=== PATIENT | female | born 1950 | race Caucasian/White ===

== ENCOUNTER 2024-09-14 12:53 | Emergency (ER) | payer MEDICARE, SELFPAY ==
[2024-09-14] VITALS (7 sets, daily range): BP systolic 100–139; BP diastolic 61–74; BMI 17.0
[2024-09-14 13:13] LABS: % Basophils 0.5 % (0-2); % Eosinophils 0.9 % (0-6); % Immature Granulocytes 0.3 % (0-0.5); % Lymphocytes 27.3 % (20.5-51.1); % Monocytes 6.2 % (1.7-9.3); % Neutrophils 64.8 % (42.2-75.2); Absolute Eosinophils 0.1 10^3/uL (0-0.7); Absolute Lymphocytes 2.4 10^3/uL (1.2-3.4); Absolute Monocytes 0.6 10^3/uL (0.1-0.6); Absolute Neutrophils 5.7 10^3/uL (1.4-6.5); Hematocrit 38.1 % (37.0-47.0); Hemoglobin 12.7 g/dL (12.0-16.0); Mean Corp Hgb Conc. 33.3 g/dL (33.0-37.0); Mean Corpuscular Hgb 31.1 pg (27.0-31.0); Mean Corpuscular Volume 93.4 fL (81.0-99.0); Mean Platelet Volume 9.8 fL (7.4-10.4); Nucleated Red Blood Cells % 0 %; Platelet Count 208 10^3/uL (130-400); Red Blood Cell Count 4.08 10^6/uL (4.20-5.40); Red Cell Dist. Width 13.2 % (11.5-14.5); White Blood Cell Count 8.8 10^3/uL (4.8-10.8)
[2024-09-14 13:28] LABS: ALT (SGPT) < 10 U/L (0-35); AST (SGOT) 27 U/L (14-36); Albumin 4.4 g/dl (3.5-5.0); Alkaline Phosphatase 92 U/L (38-126); Blood Urea Nitrogen 22 mg/dl (7-17); Calcium 9.8 mg/dl (8.4-10.2); Carbon Dioxide 26 mmol/L (22-30); Chloride 106 mmol/L (98-107); Estimated Creatinine Clearance 50 ml/min; Glucose 126 mg/dl (70-99); Potassium 4.2 mmol/L (3.5-5.1); Sodium 141 mmol/L (135-145); Total Bilirubin 0.7 mg/dl (0.2-1.3); Total Protein 7.3 g/dl (6.3-8.2); eGFR > 60.00
--- NOTE | 2024-09-14 13:28 | ED.GENMED ---
History of Present Illness
General
Chief Complaint: Abdominal Symptoms
Source: patient
Exam Limitations: dementia
Time Seen by Provider: 09/14/24 13:14
Nursing documentation reviewed up to this point in time: agreed with
History of Present Illness
History of Present Illness:
74-year-old female with dementia was nauseous and diaphoretic at physical therapy here she is comfortable appearing, states she feels nauseous has not eaten lunch yet, no noted vomiting here, tells me she has not had surgery on her abdomen previously
Past History
Past History
ED Past Medical History: Other (Dementia)
Social History
Tobacco: Non-smoker
Alcohol: None
Drug: None
Living: long term
Employment: Not employed
Family History
Family History: Unable to obtain (Dementia)
Review of Systems
Review of Systems
Unable to obtain full review of systems at this time due to: dementia
Other source history: ambulance crew
All Other Systems: Not applicable
Cardiac: Reports diaphoresis; Denies chest pain
ABD/GI: Reports nausea
Phy Exam
Physical Exam
Physical Exam:
Physical Exam
General: 74-year-old female flat affect no acute distress
Neck: Lips are slightly dry
Heart: s1/s2 regular rate and rhythm, no murmur. equal radial pulses.
Lungs: no acute respiratory distress. clear bilaterally
Abdomen: Soft mild upper abdominal tenderness no guarding
Neuro: Demented moves all extremities
Skin: no rash
Psychiatric: Cooperative
Extremities: no edema.
Course
Orders/Labs/Results
Orders:
Orders
09/14/24 12:59
Electrocardiogram (*1) Urgent
Reason for Study: Chest Pain
EKG- Treatment ONCE
09/14/24 13:04
Complete Blood Count/With Diff Urgent
Comprehensive Metabolic Panel Urgent
Prothrombin Time Urgent
Troponin I Urgent
09/14/24 13:21
0.9% Sodium Chloride 1000 ml [Nss] 1,000 ml IV BOLUS
Ondansetron Injectable [Zofran] 4 mg IV NOW STA
Obstruct Series W/PA Chest [CR Obstruct Series W/pa Chest] Urgent
Comment:
Reason For Exam: nausea
09/14/24 14:15
Magnesium Citrate [Citroma] 300 ml PO ONCE ONE
09/14/24 15:13
Carbidopa/Levodopa [Sinemet 25-100] 1 tablet PO NOW STA
Abnormal Lab Results
09/14/24
13:04
RBC 4.08 L 10^6/uL
(4.20-5.40)
MCH 31.1 H pg
(27.0-31.0)
BUN 22 H mg/dl
(7-17)
Glucose 126 H mg/dl
(70-99)
09/14/24 13:04
09/14/24 13:04
Vital Signs
Initial and Last Documented VS:
Initial Vital Signs
Temp Pulse Resp BP Pulse Ox
98.1 F 89 16 100/61 98
09/14/24 12:55 09/14/24 12:55 09/14/24 12:55 09/14/24 12:55 09/14/24 12:55
Last Documented Vital Signs
Temp Pulse Resp BP Pulse Ox
98.1 F 92 16 139/74 97
09/14/24 12:55 09/14/24 14:45 09/14/24 14:45 09/14/24 14:30 09/14/24 14:45
MDM/Problems Addressed
Differential Diagnosis Includes:
Nausea, gastritis, enteritis, food poisoning, obstruction, nonspecific nausea, conceivably ACS
MDM/Problems Addressed:
Nausea
Chronic conditions affecting care:
Dementia
Acute Exacerbation and/or Progression of Chronic Illness:
Dementia
*Radiology
Radiology exam reviewed: preliminary read by ED provider
*Pulse Oximetry
Patient hypoxic: no
*EKG
Interpretation: abnormal
Comparison EKG: no comparison EKG present
Heart Rate: 78
Rate: normal
Rhythm: sinus
Ischemia: non-specific ST changes
*Wage Analyst Interpretation
Rate: normal
Interpretation: normal
Heart Rate: 78
Rhythm: sinus
*Critical Care Note
Total Time (30-74mins, 75-104mins- exclusive of procedures): Not Applicable
Update Note
Update Note:
2:15 PM labs noted EKG noted troponin noted obstruction series noted appears to be so family members at bedside will see if we can get some more history
Daughter states that patient does suffer with constipation, I did offer her an enema which she politely refused will try some mag citrate, continue hydration serial abdominal exams
2:50 PM patient tolerating magnesium citrate by mouth
Reviewed inpatient versus outpatient management patient feels okay going home, clearly instructed to return to the ER for worsening symptoms
ED Attending Note
-
Portions of this chart may have been created with voice recognition software.� Occasional wrong word or��sound alike� substitutions may have occurred due to the inherent limitations of voice recognition software.
Discharge Plan
Departure
Patient Disposition: Home (Routine Discharge)
Date of Disposition: 09/14/24
Time of Disposition: 15:22
Patient with high blood pressure during this ER visit?: No
Condition: Good
Covid-19: Not Applicable
Discharge Problem:
Constipation
Instructions: Constipation, Adult (DC), Nausea and Vomiting, Adult (DC)
Prescriptions:
New
polyethylene glycol 3350 [ClearLax] 17 gram/dose powder
4 g PO DAILY PRN (Reason: Constipation) Qty: 238 0RF
ondansetron 4 mg tablet,disintegrating
4 mg PO Q8H PRN (Reason: nausea and vomiting) Qty: 20 0RF
Referrals:
Do Ordonez, DO [Family Provider] -
Interventions
Interventions:
*Risk Screen - Suicide Last Done: 09/14/24 12:55
*General Assessment Last Done: 09/14/24 12:55
*Neglect/Abuse Screening Last Done: 09/14/24 12:55
*ED- Fall Risk Assessment Last Done: 09/14/24 12:55
TS-Vtzuvc-Hsmoiwbawm Assessment Last Done: 09/14/24 13:07
Discharge Date and Time
Print Language: [place]IZ[place]
[2024-09-14 13:29] LABS: INR 0.98; PT 13.3 Sec (11.4-14.6)
[2024-09-14 13:39] LABS: Troponin I < 0.012 ng/ml
[2024-09-14] MEDS: NSS 1000 IV (13:41)
[2024-09-14] MEDS: ZOFRAN 4 MG IV (13:41)
[2024-09-14] MEDS: CITROMA 300 ML PO (14:37)
[2024-09-14] MEDS: SINEMET 25-100 1 TABLET PO (16:02)
== END 2024-09-14 19:22 | disposition home or self-care (01) ==
LOC: EMR 12:53
PROVIDERS: EMERGENCY PHYSICIAN Emergency Medicine; FAMILY PHYSICIAN Hospitalist
DX: K59.00 Constipation, unspecified (principal); F03.90 Unspecified dementia, unspecified severity, without behavioral disturbance, psychotic disturbance, mood disturbance, and anxiety
CPT/HCPCS: 99283; 96374; 96361; 74022; 80053; 84484; 85025; 85610; 93005